=== PATIENT | female | born 1925 | race Caucasian/White ===

== ENCOUNTER 2016-11-09 12:00 | Inpatient (IN) | payer MEDICARE, OTHER ==
[~2016-11-09] VITALS: Ht 162.6 cm; Wt 53.9 kg
--- NOTE | ~2016-11-09 | CON ---
PATIENT'S NAME: CRISTOPHER BUI [facility] AGE: 89 Y [address] ROOM: [place] [address] LOCATION: GPCU ADMIT DATE: 11/09/2016 Consultation DISCHARGE DATE: FAMILY PHYSICIAN: PHYSICIAN, UNKNOWN ATTENDING PHYSICIAN: LITTLE DOMINGUEZ REFERRING PHYSICIAN: Alexander Yadav MD Consult for hospitalist Dr. Vgiil, hospitalist. This pleasant 89-year-old lady is referred for rehab/RN STARS evaluation, admitted on 11/09/2016 with left thigh pain. She is now status post on 11/09/2016: 1. Closed reduction, percutaneous pinning of the left hip. 2. Evacuation of left thigh hematoma. 3. Use of intraoperative fluoroscopy for about 1 hour, details on record. She has history of multiple falls, and she was found to be markedly anemic also, and during this investigation, was given 1 unit of packed cells. Her INR was on admission reportedly 3.7, and she was given vitamin K to reverse her Coumadin action. She is reportedly at the present time having difficulty also with swallowing, close investigated still. No headache. Denies any dizziness, can move all 4; however, her talk is clear, but she is markedly pale and anemic. PAST MEDICAL HISTORY: Significant as follows: 1. Atrial fibrillation, on long-term anticoagulation, Coumadin. 2. Sick sinus syndrome, status post pacemaker placement. 3. Coronary artery disease. 4. Hypertension. 5. Total abdominal hysterectomy. PHYSICAL EXAMINATION: GENERAL: She is now alert, able to respond well and appropriate. VITAL SIGNS: Blood pressure 154/68, temperature 99.9, pulse 80, respirations 20. She is 5 feet 4 inches tall and weighs 54.5 kg. EXTREMITIES: Moves all four as I mentioned, with a muscle strength of 3+/5. She is at the present time with IV line. She is on the following medications: 1. Albuterol. 2. Labetalol. PATIENT'S NAME: CRISTOPHER BUI [facility] AGE: 89 Y [address] ROOM: [place] [address] LOCATION: GPCU ADMIT DATE: 11/09/2016 Consultation DISCHARGE DATE: FAMILY PHYSICIAN: PHYSICIAN, UNKNOWN ATTENDING PHYSICIAN: LITTLE DOMINGUEZ 3. [place]. 4. Florastor. 5. Normal saline. 6. Rocephin. 7. Compazine. 8. Tylenol. 9. Zofran. 10. Os-Alfredo D. 11. Valium. 12. Aldactone. 13. Cozaar. 14. Flonase. 15. Florinef. 16. Pacerone. 17. Protonix. 18. Zoloft. 19. Requip. 20. Slow-Mag. 21. Coumadin. 22. NaCl. 23. Lomotil. 24. Fleet. 25. Dulcolax. 26. MOM. 27. Benadryl. 28. Ambien. 29. Soma. 30. Dextrose 5%. ASSESSMENT AND PLAN: At the present time, she is admitted here for bedside therapy, PT, OT, Speech which have been already initiated which I will continue. I will watch her and follow alongside with her. When she is stable, we will re-evaluate for possible rehab admission. At this present time, we have a full unit. Thank you for this referral. All the above was explained to her and her daughter. They verbalized understanding and agreement. ALEXANDER YADAV MD WMS/modl PATIENT'S NAME: CRISTOPHER BUI [facility] AGE: 89 Y [address] ROOM: [place] [address] [facility] ADMIT DATE: 11/09/2016 Consultation DISCHARGE DATE: FAMILY PHYSICIAN: PHYSICIAN, UNKNOWN ATTENDING PHYSICIAN: LITTLE DOMINGUEZ /[id number] d: 11/16/161946 t: 11/17/16913, CONSULTATION REPORT
--- NOTE | ~2016-11-09 | HP ---
PATIENT'S NAME: CRISTOPHER BUI [facility] AGE: 89 Y [address] ROOM: [place] [address] LOCATION: [facility] ADMIT DATE: 11/09/2016 History & Physical DISCHARGE DATE: FAMILY PHYSICIAN: PHYSICIAN, UNKNOWN ATTENDING PHYSICIAN: LITTLE DOMINGUEZ DATE OF SERVICE: CHIEF COMPLAINT: Left thigh pain. HISTORY OF PRESENT ILLNESS: An 89-year-old lady with a past medical history of atrial fibrillation, on Coumadin, resident of assisted living facility, also has a history of multiple recurrent falls, who was admitted at the [facility] yesterday with increasing left thigh pain, which started on Saturday. The patient can not recall when did she fall. On admission to the [place] facility, she was found to be anemic at that point, and she was given 1 unit of PRBC. Her INR was found to be elevated at 3.7, and she was given vitamin K, and yesterday, her INR was 1.7. A CAT scan was undertaken, which did not reveal any acute bony fracture but did show hematoma in the left iliopsoas muscle. On my encounter, she is only complaining of left thigh pain, which is exacerbated by movement. She denied any headache, any trouble with the eyes, any trouble swallowing, any chest pain, any palpitation, any abdominal pain, any constipation, diarrhea, or any burning on urination. REVIEW OF SYSTEMS: All other systems were reviewed and were negative except what is mentioned in the HPI. PAST MEDICAL HISTORY: Paroxysmal atrial fibrillation, on long-term anticoagulation with Coumadin as well as Pacerone; sick sinus syndrome, status post pacemaker; coronary artery disease and negative angiography in 2014; hypertension, total abdominal hysterectomy. SOCIAL HISTORY: Never a smoker. No alcohol or drug abuse. FAMILY HISTORY: Father of prostate cancer. Mom and dad both had high blood pressure. ALLERGIES: NO KNOWN DRUG ALLERGIES. PATIENT'S NAME: CRISTOPHER BUI [facility] AGE: 89 Y [address] ROOM: [address] [address] LOCATION: [facility] ADMIT DATE: 11/09/2016 History & Physical DISCHARGE DATE: FAMILY PHYSICIAN: PHYSICIAN, UNKNOWN ATTENDING PHYSICIAN: LITTLE DOMINGUEZ PHYSICAL EXAMINATION: VITAL SIGNS: 174/90, 103, 16, afebrile. GENERAL: In no acute distress. Alert and oriented x3. HEENT: HEAD: Atraumatic, normocephalic. Eyes: Nonicteric. No pallor. Oropharynx: Moist mucous membranes. CARDIOVASCULAR: S1, S2. Systolic ejection murmur at the aortic region. LUNGS: Clear to auscultation bilaterally. ABDOMEN: Soft, nontender, nondistended. Bowel sounds present. EXTREMITIES: No clubbing, cyanosis, or edema. MUSCULOSKELETAL: Exquisite tenderness noted in the left thigh posteriorly and tenderness noted. Pain on passive as well as active movement. Peripheral pulses +2. NEUROLOGIC: Cranial nerves 2 through 12 intact. No motor or sensory deficits. PSYCH: Normal affect, mood, and speech. LABORATORY DATA: Lab work from outside facility showed hemoglobin of 9.9 today. Potassium of 3.3, sodium 144, and creatinine 1.0. CAT scan report as mentioned in the HPI. ASSESSMENT AND PLAN: 1. Acute blood loss anemia. 2. Acute cystitis. 3. Left thigh hematoma. 4. Paroxysmal atrial fibrillation. 5. Hypokalemia. 6. Hypomagnesemia. 7. Sick sinus syndrome, status post pacemaker. 8. Osteoporosis. 9. Severe protein-calorie malnutrition. 10. Essential hypertension. 11. Recurrent multiple falls. PLAN: We are going to start the patient on IV fluids and IV pain medications. Orthopedic consultation has been obtained. We are going to replace potassium as well as magnesium. We are going to repeat H and H as of now, and if drop in hemoglobin, we will give her more packed red blood cells transfusion. Her INR was 1.7 yesterday. From outside facility, doctor told that on admission to the hospital, she had a urinary tract infection, which was acute cystitis and is being treated with Rocephin 1 g q.24 hours, which we will continue her. SCDs for DVT prophylaxis at this point. Code status was discussed with the patient, and the patient wishes to be full code. The patient's RSRI score was zero. She is a low risk patient for this low-risk surgery. If hematoma needs to be drained, we would recommend proceeding with the surgery. PATIENT'S NAME: CRISTOPHER BUI [facility] AGE: 89 Y [address] ROOM: [address], [facility] [place] [address] LOCATION: [facility] ADMIT DATE: 11/09/2016 History & Physical DISCHARGE DATE: FAMILY PHYSICIAN: PHYSICIAN, JENA ATTENDING PHYSICIAN: LITTLE DOMINGUEZ MD ROBIN PALACIOS/modl /[id number] D: [id number] T: [id number] HISTORY & PHYSICAL
--- NOTE | ~2016-11-09 | PN ---
PATIENT'S NAME: CRISTOPHER BUI [facility] AGE: 89 Y [address] ROOM: [id number] [place], [place] [address] LOCATION: GPCU ADMIT DATE: 11/09/2016 Progress Notes DISCHARGE DATE: FAMILY PHYSICIAN: PHYSICIAN, UNKNOWN ATTENDING PHYSICIAN: LITTLE DOMINGUEZ DATE OF SERVICE: 11/18/2016 PRINCIPAL DIAGNOSES: 1. Left femoral fracture, status post open reduction and internal fixation. 2. Left thigh hematoma, status post evacuation. 3. Aspiration pneumonia, received 5 days course of ceftriaxone. 4. Paroxysmal atrial fibrillation, on long-term anticoagulation with Coumadin, status post pacemaker. 5. Coronary artery disease. 6. Hypertension. 7. Dementia. 8. Severe protein-calorie malnutrition. 9. Acute cystitis, which was present on admission. HOSPITAL COURSE: This is an 89-year-old lady with a past medical history of atrial fibrillation, on Coumadin, who is a resident of an assisted living facility recently had recurrent falls and was admitted at the [facility] with increasing left thigh pain. An x-ray of the left hip was done, which did not reveal any fracture. She was transferred here for the presence of the left thigh hematoma. On arrival here, she was found to have acute blood loss anemia with the hemoglobin about 9.9. Orthopedic consultation was obtained, and the patient was taken to the OR. Prior to taking to the OR, a CAT scan of the femur was also done, which orthopedic surgeon felt that had a fracture and is occult in nature. In the OR, she underwent open reduction and internal fixation as well as evacuation of the left thigh hematoma. She tolerated the procedure well. She developed multiple complications in the hospital. She had difficulty swallowing, and she was high aspiration risk. She underwent modified barium swallow, and she was aspirating on all consistencies of food. She was put on tube feeds through a nasogastric tube. Speech therapy continues to work with her. During the course of the hospitalization. She continues to lose blood after the surgery without any obvious finding. She required 1 unit of packed red blood cell transfusion. She, after the surgery likely had aspiration on food and developed high white count as well as fever. She was restarted back on ceftriaxone, and chest x-ray did show bibasilar opacities. Her procalcitonin on day 5 of the Rocephin was 0.11, which was markedly lower than the previous procalcitonin. Sputum culture was finally obtained. We did show gram-positive cocci in chains. Further cultures and susceptibilities are pending. She has been afebrile for more than 48 hours PATIENT'S NAME: CRISTOPHER BUI [facility] AGE: 89 Y [address] ROOM: [place] [address] LOCATION: GPCU ADMIT DATE: 11/09/2016 Progress Notes DISCHARGE DATE: FAMILY PHYSICIAN: PHYSICIAN, UNKNOWN ATTENDING PHYSICIAN: LITTLE DOMINGUEZ. The plan for her is to undergo modified barium swallow again on Saturday on 11/19/2016. If she passes that, we can advance diet as tolerated and discontinue the tube feeds. She will need a swing bed/chcf facility for placement given her current comorbidities and current condition after left femoral hip fracture and repair. Her Coumadin has been restarted, and she has been therapeutic for the past 48 to 72 hours. Of note, she also had urinary tract infection on admission to the hospital. MD ROBIN PALACIOS/jackeline /[id number] d: 11/18/16 1632 t: 12/09/16 1507, PROGRESS NOTES
--- NOTE | ~2016-11-09 | OR ---
PATIENT'S NAME: CRISTOPHER BUI [facility] AGE: 89 Y [address] ROOM: [place] [address] LOCATION: GPCU ADMIT DATE: 11/09/2016 OR/Procedure Report DISCHARGE DATE: FAMILY PHYSICIAN: PHYSICIAN, UNKNOWN ATTENDING PHYSICIAN: LITTLE DOMINGUEZ SURGEON: Rudy Bella MD CALL CENTER ASSOCIATE: None. DATE OF PROCEDURE: 11/09/2016 PREOPERATIVE DIAGNOSES: 1. Left nondisplaced femoral neck fracture. 2. Symptomatic left thigh hematoma. POSTOPERATIVE DIAGNOSES: 1. Left nondisplaced femoral neck fracture. 2. Symptomatic left thigh hematoma. PROCEDURE: 1. Closed reduction and percutaneous pinning of left hip. 2. Evacuation of left thigh hematoma. 3. Use of intraoperative fluoroscopy, less than 1 hour. ANESTHESIA: General endotracheal anesthesia. FLUIDS: See Anesthesia report. ESTIMATED BLOOD LOSS: 100 mL. TOURNIQUET: None. SPECIMEN: None. COMPLICATIONS: None. DISPOSITION: Stable in PACU. COUNTS: All counts were correct. IMPLANTS: Synthes 7.3 mm partially threaded and cannulated stainless steel screws. INDICATIONS: Mrs. Bui is an 89-year-old female who underwent the noted procedures above. The risks, benefits, and alternatives pursuing surgical intervention were discussed with the patient, her daughter, her power-of- real estate attorney, in detail. Anesthesia was consulted for their perioperative PATIENT'S NAME: CRISTOPHER BUI [facility] AGE: 89 Y [address] ROOM: [place] [address] LOCATION: GPCU ADMIT DATE: 11/09/2016 OR/Procedure Report DISCHARGE DATE: FAMILY PHYSICIAN: PHYSICIAN, UNKNOWN ATTENDING PHYSICIAN: LITTLE DOMINGUEZ A evaluation of the patient. I marked the left lower extremity indicating correct surgical site. OPERATIVE REPORT IN DETAIL: The patient was taken from the holding area to the operating room. A time-out was performed. General endotracheal anesthesia was administered. Ancef antibiotic was administered for perioperative prophylaxis. I placed the patient on a [place] table and extremities prepped and draped in a sterile fashion. I turned my attention to the left hip. Using intraoperative fluoroscopy, I performed a closed reduction maneuver. I subsequently made an incision over the lateral aspect of the thigh through skin and subcutaneous tissue down through fascia muscle down to bone. I placed my 1st pin in a center-center inferior position and having confirmed it fluoroscopically. I then placed an anterior-superior and posterior-superior pin relative to the inferior center- center pin to create an inverted triangle pattern. I used a Reshma gun to assist with this positioning. Once the pins were placed, the pins were measured and then subsequently drilled in sequence and 7.3 mm partially threaded and cannulated screws were placed. The reduction was well-maintained and there was good compression across all 3 screws. The surgical incision was then carried more distally identified anterior thigh hematoma. I subsequently used a [place] elevator to evacuate the hematoma in the anterior aspect of the thigh. Most of the blood was coagulated. The wound was then copiously irrigated with a normal sterile saline solution via bulb syringe. The wound was then closed in layers beginning with 0 Vicryl followed by 2-0 Vicryl and neville for the skin. A Mepilex dressing was placed over the left hip. The nursing team then placed a Baker catheter. The patient was then transferred from the operating table onto a hospital bed and extubated and brought to the recovery room in stable condition. There were no intraoperative complications noted. Final fluoroscopic images were taken showing a successful left hip pinning with no evidence of complication. IMPRESSION: The patient is status post noted procedures above. PLAN: The patient will be toe-touch weightbearing on the left lower extremity. Physical Therapy and Occupational Therapy will be consulted for early ambulation and prevention of deconditioning. The hospitalist will continue to manage the patient's concomitant medical comorbidities. Postoperative antibiotics will be per routine. DVT prophylaxis will be in the form of Lovenox likely bridged to Coumadin. I will continue to monitor the PATIENT'S NAME: CRISTOPHER BUI [facility] AGE: 89 Y [address] ROOM: [address] [address] [facility] ADMIT DATE: 11/09/2016 OR/Procedure Report DISCHARGE DATE: FAMILY PHYSICIAN: PHYSICIAN, UNKNOWN ATTENDING PHYSICIAN: LITTLE DOMINGUEZ patient closely postoperatively. MD SHARAD QUIROZ/modl /[id number] d: 11/10/16 0024 t: 11/12/16 1626, OPERATIVE SUMMARY
--- NOTE | ~2016-11-09 | DS ---
PATIENT'S NAME: CRISTOPHER BUI [facility] AGE: 89 Y [address] ROOM: [place] [address] [place] [facility] [place]: 11/09/2016 Discharge Summary DISCHARGE DATE: 12/03/2016 FAMILY PHYSICIAN: Physician, Unknown ATTENDING PHYSICIAN: Luis Alberto Pedro PRINCIPAL DIAGNOSES: 1. Left femoral fracture status post open reduction and internal fixation. 2. Left thigh hematoma, status post evacuation. 3. Acute blood loss anemia. 4. Severe dysphagia. 5. Paroxysmal atrial fibrillation. 6. Coronary artery disease. 7. Hypertension. 8. Severe protein calorie malnutrition. 9. Acute cystitis, present on admission. HOSPITAL COURSE: This is an 89-year-old lady presented from assisted living facility after she had a fall and was admitted for evaluation of left thigh pain and on evaluation and CAT scan. She was noted to have a left femoral fracture that was occult in nature per Ortho's read and was subsequently taken to the OR and had an open reduction and fixation of the fracture site as well as evacuation of large hematoma around the site was done. The patient did well from that standpoint during her hospitalization. The patient was also known to have history of dysphagia and complications with aspiration which she did have during the hospitalization and her hospital stay was lengthy one mainly due to her ongoing dysphagia. The patient had been kept n.p.o. and received tube feedings for several days while speech therapy aggressively worked with her during hospitalization and fortunately, the patient was able to improve her swallowing and by discharge date, the patient was able to tolerate oral intake with diet that was consistent with a modified diet per speech therapist's recommendation. The patient on day of discharge is in good spirits tolerating p.o. intake very well. The patient is being [facility] for [facility]habbing and overall has done very well. The patient will follow up with the primary care physician within one week. PHYSICAL EXAMINATION: GENERAL: The patient is awake, alert, and oriented X3. No acute distress. HEART: S1 and S2; regular rate and rhythm. ABDOMEN: Soft, nontender, and nondistended. Positive bowel sounds. CHEST: Clear to auscultation bilaterally. EXTREMITIES: Without edema. MEDICATIONS: Per OCT. PATIENT'S NAME: CRISTOPHER BUI [facility] AGE: 89 Y [address] ROOM: [address] [address] [place] [facility] [place]: 11/09/2016 Discharge Summary DISCHARGE DATE: 12/03/2016 FAMILY PHYSICIAN: , Unknown ATTENDING PHYSICIAN: Luis Alberto Pedro Greater than 30 minutes were spent in discharge planning and facilitating. MD FABRICIO DANIELS/modl /[id number] d: 12/18/16 1151 t: 01/14/17 1510, DISCHARGE SUMMARY
--- NOTE | ~2016-11-09 | CON ---
PATIENT'S NAME: RCISTOPHER HARDY [facility] AGE: 89 Y [address] ROOM: [address] [place] [id number] LOCATION: [facility] ADMIT DATE: 11/09/2016 Consultation DISCHARGE DATE: FAMILY PHYSICIAN: PHYSICIAN, UNKNOWN ATTENDING PHYSICIAN: LITTLE DOMINGUEZ DATE OF CONSULTATION: 11/09/2016 ORTHOPEDIC CONSULTATION CHIEF COMPLAINT/REASON FOR CONSULTATION: Left hip and groin pain. HISTORY OF PRESENT ILLNESS: Ms. Hardy is a pleasant 89-year-old female, who sustained multiple falls in the last two weeks, the most recent being Saturday. She has ecchymosis of her hip and pain in the hip and groin region. She is not able to bear weight. Brought to the emergency room where she was seen and evaluated. There appears to be no evidence of fracture of the left hip. A CT scan was subsequently performed that revealed still evidence of hematoma. The patient reports hip and groin pain with swelling and inability to bear weight. Currently, the patient denies any constitutional symptoms of fever, chills, or night sweats. She also denies any dizziness, chest pain, shortness of breath, blurred vision, nausea, vomiting, or diarrhea. REVIEW OF SYSTEMS: A 10-point review of systems was performed. The patient issue is musculoskeletal in nature and it pertains to the patient's left lower extremity. There is pain, swelling, and discomfort with manipulation of the left lower extremity. PAST MEDICAL HISTORY: 1. Appendicitis. 2. Osteoarthritis. 3. Restless legs syndrome. 4. Dementia. 5. Atrial fibrillation. PAST SURGICAL HISTORY: Includes an appendectomy. SOCIAL HISTORY: The patient denies any alcohol, tobacco, or illicit drug use. She appears to live in a facility. PATIENT'S NAME: CRISTOPHER HARDY [facility] AGE: 89 Y [address] ROOM: [address] [place] [id number] LOCATION: [facility] ADMIT DATE: 11/09/2016 Consultation DISCHARGE DATE: FAMILY PHYSICIAN: PHYSICIAN, UNKNOWN ATTENDING PHYSICIAN: LITTLE DOMINGUEZ MEDICATIONS: Currently being reconciled. FAMILY HISTORY: There is history of hypertension on maternal and paternal sides of the family. PHYSICAL EXAMINATION: VITAL SIGNS: Afebrile. Vital signs are, otherwise, currently stable. GENERAL: The patient in no acute distress. She is awake and alert. She appears confused at baseline. HEENT: Normocephalic and atraumatic. Extraocular movements are intact. PERRLA. Moist mucous membranes. Oropharyngeal airway is clear. She is wearing corrective lenses. NECK: Supple. Trachea is in the midline. CARDIOVASCULAR: Regular rate and rhythm. ABDOMEN: Nontender and nondistended. CHEST: Normal and symmetric respirations are observed bilaterally. There is a left-sided pacemaker in place. PELVIS: Stable. MUSCULOSKELETAL: Left lower extremity: Focal examination of the patient's left lower extremity reveals that she is grossly neurologically intact distally. Compartments of the thigh, leg, and foot are soft. There is scattered ecchymosis of the proximal thigh and tenderness to the mid thigh. There is a positive log roll test. There is active dorsiflexion, plantar flexion of the ankle with no pain. She has palpable dorsalis pedal and posterior tibial pulse with good capillary refill in the toes. Right lower extremity: Focal examination of the patient's right lower extremity reveals that she is grossly neurologically intact distally. Compartments of the thigh, leg, and foot are soft. There is palpable dorsalis pedal and posterior tibial pulse. There is good capillary refill in the toes. There is a negative log roll test on this side. There is no pain with passive or active range of motion of the ankle. IMAGING STUDIES: Plain radiographs of the left hip revealed evidence of a nondisplaced transcervical incomplete fracture of the left femoral neck. A CT scan of the left hip and thigh revealed evidence of a left thigh hematoma and again no evidence of definitive fracture of the femoral neck or alternatively a nondisplaced fracture of the femoral neck. Diffuse osteopenia is noted. IMPRESSION: 1. Left nondisplaced fracture of the femoral neck. 2. Symptomatic left thigh hematoma. PATIENT'S NAME: CRISTOPHER HARDY [facility] AGE: 89 Y [address] ROOM: [id number] [place], [place] [id number] LOCATION: [facility] ADMIT DATE: 11/09/2016 Consultation DISCHARGE DATE: FAMILY PHYSICIAN: PHYSICIAN, UNKNOWN ATTENDING PHYSICIAN: LITTLE DOMINGUEZ PLAN: I had a long discussion with the patient in the presence of her daughter today regarding the left hip. It appears though there is an occult hip fracture as well as a thigh hematoma. I am recommending closed reduction and percutaneous pinning of the left hip and evacuation of her thigh hematoma. Despite the fact that the x-ray and CT scan are somewhat ambiguous, her clinical symptoms are not. The patient currently has a pacemaker, and is not eligible for an MRI. The hospitalist has cleared her for surgery and she is NPO. We will plan to proceed with a close reduction and percutaneous pinning of the left hip along with evacuation of her thigh hematoma as soon as this afternoon. I have answered all the patient and the patient's daughter's questions today at the bedside. MD SHARAD QUIROZ/jackeline /[id number] d: 11/09/163 t: 11/10/16 1107, CONSULTATION REPORT
[~2016-11-09 12:00] MED LIST: ACETAMINOPHEN650 M2 PO; ASPIRIN EC81 MG PO; CALCIUM 500 +1 EACH PO; CENTRUM SILVER1 TAB PO; COUMADIN **IA2.5 MG PO; COZAAR25 MG PO; FISH OIL1000 MG PO; LIPITOR10 M1 PO; MIDODRINE HCL5 MG PO; NORCO 5-325 MG1 TAB; RYTHMOL225 M1 PO
--- NOTE | 2016-11-09 14:15 | NUR ---
Pt is 89 y/o female admit for left thigh hematoma for hospitalist. No allergies. Pt resides at an assisted living in [place]. She has had a few falls, unclear as to when last fall was, but she's been getting weaker and weaker. Pt has hx dizziness,falls,sinus prob,afib,htn,edema in ankles,pacemaker, spinal stenosis,IBS/diarrhea,urgency/frequency-el at [facility],anxiety,memory problems.
[2016-11-09] MEDS ORDERED: CORDARONE,PACE200 MG PO (15:25)
[2016-11-09] MEDS ORDERED: FLORINEF0.1 MG PO (15:26)
[2016-11-09] MEDS ORDERED: PRILOSEC20 MG PO (15:27)
[2016-11-09] MEDS ORDERED: ZOLOFT50 MG PO (15:28)
[2016-11-09] MEDS ORDERED: REQUIP0.25 MG PO (15:28)
[2016-11-09] MEDS ORDERED: SLOW-MAG (64 MG1 TAB PO (15:28)
[2016-11-09] MEDS ORDERED: ALDACTONE25 MG PO (15:29)
[2016-11-09] MEDS ORDERED: ULTRAM50 MG PO ×2 (15:30→15:32)
[2016-11-09] MEDS ORDERED: TYLENOL ARTHRI650 MG PO ×2 (15:30)
[2016-11-09] MEDS ORDERED: LOMOTIL 2.5-0.1 EACH PO (15:31)
[2016-11-09] MEDS ORDERED: HYDROCODON-ACE1 EAC4 PO (15:33)
[2016-11-09] MEDS ORDERED: FLONASE 50 MCG/16 GM NOSE (15:35)
[2016-11-09 15:44] LABS: HEMATOCRIT 34.1 % (30.0-46.0)
[2016-11-09 15:52] LABS: INR - (THERAPEUTIC) 1.2 (0.9-1.1); PROTIME 12.2 SECONDS (9.6-11.1)
[2016-11-09 16:06] LABS: CPK 118 IU/L (21-215)
--- NOTE | 2016-11-09 16:40 | NUR ---
Significant Event: Patient went into surgery around 1630. Need to given Potassium IV when patient returns to floor. Follow up:
--- NOTE | 2016-11-10 04:15 | NUR ---
Significant Event: Dressing is clean, dry and intact. CSM WNL. Baker catheter. On 1 L of oxygen nasal cannula. On telemetry with no calls. Morphine and Percocet given at 2007. Patient has been resting since. Hypertensive at the beginning of the shift, but better after pain medication. Follow up:
[2016-11-10 06:06] LABS: HEMOGLOBIN 9.3 g/dL (10.0-15.0); MCH 29.7 pg (27.0-34.0); MCV 95.8 fl (83.0-98.0); MPV 9.6 fl (9.4-12.4); PLATELET COUNT 173 K/uL (150-450); RBC 3.13 M/uL (3.00-5.00); RDW-CV 15.4 % (11.9-14.6); WBC 5.9 K/uL (4.0-11.0)
[2016-11-10 06:12] LABS: INR - (THERAPEUTIC) 1.1 (0.9-1.1); PROTIME 12.1 SECONDS (9.6-11.1)
[2016-11-10 06:19] LABS: ANION GAP 9.5 (10.0-19.0); CALCIUM 7.9 mg/dL (8.5-10.5); POTASSIUM 4.5 mMol/L (3.7-5.1)
[2016-11-10 07:02] LABS: ABSOLUTE NEUTROPHIL CT (ANC) 5.3 K/uL (1.8-7.8); BANDED NEUTROPHIL # 0.1 K/uL (0.0-0.1); BANDED NEUTROPHILS % 1 %; LYMPHOCYTE # 0.2 K/uL (0.8-4.0); LYMPHOCYTE % 4 %; MONOCYTE # 0.4 K/uL (0.0-1.0); SEGMENTED NEUTROPHIL # 5.3 K/uL (1.8-7.8); SEGMENTED NEUTROPHIL % 89 %
--- NOTE | 2016-11-10 16:39 | NUR ---
Pt is alert and oriented this shift. She has hip spica chadwick wrap dressing left hip. dry and intact. Ice to hip. CSM WNL. Pt does ankle pumps well. Pt is Toe Touch weight bearing left. She is a pivot transfer with 2 assist and does fairly well mainting TTWB. Pt up chair today and back to bed. Pt gonzales removed at 1430. She has UTI and is on rocephin. She is to have a UA on 11/12. Pt takes po fluids fairly well. Says she occasionally coughs with thin liquids and has done a few times, but ate well and does better when sitting up in chair to eat. Pt had routine tylenol and ultram at 2;30 and she rates pain at 3 at this time. Uses IS at 1000. Daughter Manda called about pt transfer to another floor due to 3N closing. Pt weaned off O2 today and sats have remained over 90%. Pt on tele for history of atrial fib. No calls . Pt will go to swingbed when discharged. Has 2 saline locks both flush well.
--- NOTE | 2016-11-10 16:58 | NUR ---
Pt had 0.5 tab of norco for increase pain left leg at 1650.
--- NOTE | 2016-11-11 03:37 | NUR ---
Shift Summary: Patient can transfer with 2 assist/walker. Had difficult pain control at bedtime due to left leg spasms. Had 2 percocet, soma, and 2mg Morphine IV. Spasms relieved after the morphine and she has not needed anything for pain since then. Incontinent of urine x 1. Wears briefs. On tele for history of Afib. Has pacemaker. Waiting for placment.
[2016-11-11 04:55] LABS: HEMATOCRIT 29.2 % (30.0-46.0); HEMOGLOBIN 9.2 g/dL (10.0-15.0)
[2016-11-11 05:09] LABS: INR - (THERAPEUTIC) 1.5 (0.9-1.1); PROTIME 16.2 SECONDS (9.6-11.1)
[2016-11-11 05:15] LABS: ALBUMIN 2.4 gm/dL (3.5-5.0); ANION GAP 11.8 (10.0-19.0); CALCIUM 7.8 mg/dL (8.5-10.5); MAGNESIUM 2.3 mg/dL (1.3-2.6); POTASSIUM 4.8 mMol/L (3.7-5.1); TOTAL BILIRUBIN 0.4 mg/dL (0.0-1.5); TOTAL PROTEIN 4.9 g/dL (6.0-8.4)
--- NOTE | 2016-11-11 17:39 | NUR ---
On 2L 02. Slept most of day. Pt up to bedside commode, 2 assist. Treated spasms with soma at 1520, along with morphine for pain. Pt states that spasms get worse at night.
--- NOTE | 2016-11-11 19:21 | NUR ---
I HAVE READ AND AGREE WITH CHARTING BY NUBIA STUDENT NURSE.
[2016-11-12 04:08] LABS: ALBUMIN 2.3 gm/dL (3.5-5.0); ANION GAP 12.5 (10.0-19.0); CALCIUM 7.7 mg/dL (8.5-10.5); CREATININE 0.9 mg/dL (0.5-1.1); POTASSIUM 4.5 mMol/L (3.7-5.1)
[2016-11-12 04:11] LABS: PROTIME 22.7 SECONDS (9.6-11.1)
--- NOTE | 2016-11-12 06:48 | NUR ---
NEURO: A&O. CARDIO: Paced. VSS. Coumadin. Lovenox. Foot pumps. RESP: Mid to upper 90's on 2lrt. Occasional harsh cough. GI/: No nausea. BSC and also incontinent. Brief on. SKIN: Bruise to left hand. Pillo wrap to left hip which wraps around waist. IV: Bilateral IVs in FAs. SL. ACTIVITY: 2 assist to pivot to chair or commode. PAIN: Scheduled tylenol and Tramadol. Also has PRN Tramadol. PRN Burk[place], Valium. PLAN: Continue plan of care. Discharge when appropriate.
--- NOTE | 2016-11-12 12:30 | NUR ---
Introduced self and role of care management to patient and a daughter. Patient lives alone at [facility] [address] in [place]. She recently was at [facility] in [place] for 21 days. Daughter says patient doesn't really want to go back there. She says her sister is the POA, lives in [place] and works in [place], so they would like to look at [place] facilities. Gave her the names of the facilities. Told her will call and see who has beds. Called all 4 [place] facilities and all have beds except [facility]. Gave patient list of facilities with addressess and who has beds. She says her sister will be here around 1300 and she will give the list to her. Will check back to see there preference later. Will follow.
--- NOTE | 2016-11-12 13:06 | NUR ---
A-NUTRITION CONSULT RECEIVED D/T LOW PREALB VISITED W/PT AND PT'S DAUGHTER AND SON-IN-LAW. PT HAS TRIED BOOST BEFORE, BUT IT "IT DID NOT AGREE WITH HER STOMACH AND MADE HER GO TO THE BATHROOM." DISCUSSED SUPPLEMENT OPTIONS HERE AT THE HOSPITAL. PT WAS AGREEABLE TO TRYING ENSURE ENLIVE; GAVE HER A CHOCOLATE FLAVORED ENSURE TO TRY D/T HER ONLY EATING BITES OF LUNCH. WHILE VISITING W/PT, PT WAS EATING HER LUNCH. SEVERAL TIMES, PT TOOK A BITE OF HER [place] AND CHEESE AND STARTED COUGHING. WHEN ASKED IF SHE WAS HAVING A DIFFICULT TIME SWALLOWING, PT REPLIED YES. PT'S VOICE IS VERY SLURRED AND HARD TO UNDERSTAND AT TIMES. RD AND MD WERE NOTIFIED OF DIFF. SWALLOWING OBSERVATIONS AND REPORT FROM PT; SPEECH EVAL WAS ORDERED. PT AND FAMILY DENY RECENT WT LOSS; APPETITE WAS GOOD PRIOR TO HOSPITALIZATION/SURGERY. UBW FLUCTUATES BETWEEN 110-120 LBS. S/P EVACATION OF HEMOTOMA AND L)HIP PINNING ON 11/09 HT: 64 IN. WT: 52 KG IBW: 54 KG BMI: 19.6 LABS: NA 138, K+ 4.5, GLU 90, BUN 18, DONOR RELATIONS COORDINATOR 0.9 11/11- PREALB 9.0 (AFTER SURGERY AND EVAC. OF HEMATOMA) MEDS: OSCAL+D, VALIUM, PROTONIX, ULTRAM, ZOLOFT, REQUIP, NORCO, AMBIEN, PRN BOWEL MEDS, MORPHINE, TRANDATE INJ. DIET RX: REGULAR. PO INTAKE HAS BEEN 50-75%, UP UNTIL TODAY. PT HAD BITES OF LUNCH. EST NUTR NEEDS: 5737-4140 KCALS (25-35 KCALS/KG) 52-68 GM PROTEIN (1.0-1.3 GM/KG) D-AT NUTRITION RISK W/INCREASED NUTRIENT NEEDS R/T HEALING AEB RECENT SURGERY. I-1)START ENSURE ENLIVE TID W/MEALS 2)NO MILK TO DRINK, NO ICE CREAM, AND NO LETTUCE ADDED TO PT'S RECORD IN COMPUTRITION, PER PT REQUEST. M/E-GOAL: PO INTAKE >/=50% BY NEXT F/U 1)F/U WITH TOLERANCE OF ENSURE ENLIVE AND SPEECH EVAL TOMORROW 2)F/U PO INTAKE, SUPPLEMENT, AND POC IN 3-5 DAYS 3)ASSIST NEEDED
[2016-11-12 13:26] LABS: BILIRUBIN URINE NEGATIVE (NEGATIVE); BLOOD URINE NEGATIVE /UL (NEGATIVE); COLOR URINE YELLOW (YELLOW); GLUCOSE URINE NEGATIVE (NEGATIVE); KETONE URINE NEGATIVE (NEGATIVE); LEUKOCYTES URINE 25 /UL (NEGATIVE); NITRITE URINE NEGATIVE (NEGATIVE); PROTEIN URINE NEGATIVE (NEGATIVE); SPEC GRAVITY URINE 1.015 (1.003-1.035); TURBIDITY URINE CLEAR (CLEAR); UROBILINOGEN URINE NORMAL (NORMAL)
[2016-11-12 13:37] LABS: EPITHELIAL URINE 0-2 #/HPF (NEGATIVE); RBC URINE 0-2 #/HPF (NEGATIVE)
[2016-11-12 13:38] LABS: AMORPHOUS URINE 1+ (NEGATIVE); BACTERIA URINE NEGATIVE (NEGATIVE); MUCUS URINE 1+ (NEGATIVE); YEAST URINE FEW (NEGATIVE)
--- NOTE | 2016-11-12 16:30 | NUR ---
Around 1330 spoke with patient's daughters. VAN Holman says she talked to a friend and they recommended [facility]. Called and spoke with Chayo at [facility] and information faxed to her. Received call now from Chayo and they will come assess patient tomorrow between [phone]. She will check to see if can admit who tomorrow if they accept her after their assessment, but she doubts they can do that. Left VMM for daughter Manda with update from Mother Cierra. Will follow.
--- NOTE | 2016-11-12 19:24 | NUR ---
Significant Event: PATIENT ALERT AND ORIENTED X3. MEPILEX/YVONNE DRESSING C/D/I TO L) THIGH, NOTE SCANT AMOUNT OF OLD DRAINAGE TO MEPILEX DRESSING. CSM ASSESSMENTS WNL TO L) LOWER LEG. BILATERAL KNEE HIGH REGLA HOSE AND FOOT PUMPS ON. UP TO CHAIR AND COMMODE WITH 2 ASSIST, TTWB, USE OF GAIT BELT/WALKER, IS HEAVY ASSIST. C/O L) LEG PAIN, RATES 6-4 ON PAIN SCALE, RECEIVED NORCO 0.5 MG LAST AT 1845 AND ROUTINE TYLENOL 2 TABS AND ULTRAM 1 TAB AT 1453. HAD SPEECH CONSULT DUE TO PATIENT COUGHING/CHOKING DURING LUNCH. NEW ORDERS RECEIVED FOR MECHANICL SOFT DIET, CRUSH MED'S AND HONEY LIKE LIQUIDS. PATIENT TO HAVE MODIFIED BARIUM SWALLOW STUDY TOMORROW. LOVENOX STOPPED, INR 2.0, REMAINS ON COUMADIN. PATIENT HAD LARGE BM THIS AFTERNOON, CARES DONE. Follow up:
[2016-11-13 05:32] LABS: HEMATOCRIT 25.2 % (30.0-46.0); HEMOGLOBIN 8.1 g/dL (10.0-15.0); MCHC 32.1 gm/dL (32.0-36.5); MCV 93.3 fl (83.0-98.0); MPV 9.6 fl (9.4-12.4); PLATELET COUNT 166 K/uL (150-450); RDW-CV 16.5 % (11.9-14.6); WBC 6.7 K/uL (4.0-11.0)
[2016-11-13 05:38] LABS: INR - (THERAPEUTIC) 2.1 (0.9-1.1); PROTIME 23.7 SECONDS (9.6-11.1)
[2016-11-13 05:42] LABS: ANION GAP 11.4 (10.0-19.0); POTASSIUM 4.4 mMol/L (3.7-5.1)
[2016-11-13 05:43] LABS: CALCIUM 7.3 mg/dL (8.5-10.5)
[2016-11-13 05:57] LABS: ABSOLUTE NEUTROPHIL CT (ANC) 6.3 K/uL (1.8-7.8); BANDED NEUTROPHIL # 1.3 K/uL (0.0-0.1); BANDED NEUTROPHILS % 20 %; LYMPHOCYTE # 0.1 K/uL (0.8-4.0); LYMPHOCYTE % 2 %; MONOCYTE # 0.3 K/uL (0.0-1.0); SEGMENTED NEUTROPHIL % 74 %
--- NOTE | 2016-11-13 06:40 | NUR ---
Significant Event: Alert, oriented, patient had large emesis around 2330, likely aspirated, suction at bedside and harsh cough with dry heaves, lungs coarse throughout after episode, Zofran given, Labetolol given to decrease SBP from 200s back down to 120s this am, Tylenol suppository given for t-max of 102.2, temp has come down to 100.6 this am, patient more alert and back to baseline this am, increased to 3L O2, inconinent of b+b, liquidy stools, cdiff negative, dressing to L) leg intact with chadwick wrap, crush meds in pudding, mech soft diet, honey liquids Follow up: MBS today, monitor temp, pending blood cultures
--- NOTE | 2016-11-13 11:21 | NUR ---
A - NUTRITION F/U. LABS: GLU 116, BUN/BARBACK 21/1.0, ALB 2.3. FAILED MBS TODAY, ST RECOMMENDING ALTERNATE FEEDING ROUTE. RECEIVED ORDER FROM MD TO MAKE PT NPO. EST NEEDS: 6469-3530 KCALS, 52-68 GM PROTEIN. ATTEMPTED TO DISCUSS TF W/ PT BUT PT SLEEPY. D - AT RISK W/ DIFFICULTY SWALLOWING R/T WEAKNESS AEB RESULTS OF MBS. I - GOAL: PROVISION OF NEEDS VIA EN. M/E - REC TF W/ JEVITY 1.5 50 ML/HR = 1800 KCALS, 75 GM PROTEIN, 912 ML FREE H20. FLUSH W/ 200 ML H20 EVERY 6 HRS. RECS DISCUSSED W/ MD AND WRITTEN IN CHART. F/U IN 2-3 DAYS.
--- NOTE | 2016-11-13 15:00 | NUR ---
Call from Chayo at [facility] and they were here to assess patient. Before they make final decision, they will need to know the follow up on the MBS and if patient will have a dobbhoff or PEG tube. They can not do a dobbhoff at their facility. Told her I will update her once I have that information. She says if they accept patient, their D.O.N will contact Dr. Moy to see if he will follow patient while there. Will follow.
--- NOTE | 2016-11-13 19:02 | NUR ---
Significant Event: pt had modified barium swallow and failed. Pt npo except can have some meds crushed with pudding. PT amb pivot to commode and bed this afternoon. 02 2liters. IS 350. Hgb 8.1. Need straight cath for urine sample yet. Afebrile. Pt slept alot today, coughs more this darrell and started to cry states does that sometimes. Narcotics holding for sleepiness. Routine tylenol given and did well until this darrell. Pt daughter talked to nurse about poss.tube feeding in future, speech therapy. Mother Cierra dunlap today. Follow up:
--- NOTE | 2016-11-14 04:12 | NUR ---
Patient A/OX3, can be forgetful. Mumbles. 2L NC lungs slightly course to clear/diminished at times. Bowel sounds hypoactive. Lt leg Mepilex and chadwick wrap CDI, good pulses. Complains of lt leg pain, nausea, vomiting. Morphine 2mg IV x1 pain relief noted. Zofran and Compazine given. NPO held PO medications last night. Pills can be given crushed in pudding. 1 Lg incont void. Straight cath x1 for urine sample. Temp 102.3 high, tylenol supp given x1. Failed [place]um swallow test. Honey thick liquids. Mechanical soft diet was the recommendations. Needs placement.
[2016-11-14 05:45] LABS: HEMATOCRIT 25.3 % (30.0-46.0); MCH 29.4 pg (27.0-34.0); MCHC 31.6 gm/dL (32.0-36.5); MPV 9.7 fl (9.4-12.4); PLATELET COUNT 161 K/uL (150-450); RBC 2.72 M/uL (3.00-5.00); RDW-CV 16.9 % (11.9-14.6); WBC 9.5 K/uL (4.0-11.0)
[2016-11-14 05:50] LABS: INR - (THERAPEUTIC) 1.8 (0.9-1.1); PROTIME 20.4 SECONDS (9.6-11.1)
[2016-11-14 05:56] LABS: ANION GAP 9.5 (10.0-19.0); CALCIUM 7.8 mg/dL (8.5-10.5); POTASSIUM 4.5 mMol/L (3.7-5.1)
[2016-11-14 06:27] LABS: ABSOLUTE NEUTROPHIL CT (ANC) 8.6 K/uL (1.8-7.8); BANDED NEUTROPHIL # 1.8 K/uL (0.0-0.1); BANDED NEUTROPHILS % 19 %; LYMPHOCYTE # 0.5 K/uL (0.8-4.0); LYMPHOCYTE % 5 %; MONOCYTE # 0.5 K/uL (0.0-1.0); SEGMENTED NEUTROPHIL # 6.8 K/uL (1.8-7.8); SEGMENTED NEUTROPHIL % 71 %
[2016-11-14 11:21] LABS: BILIRUBIN URINE NEGATIVE (NEGATIVE); BLOOD URINE 10 /UL (NEGATIVE); COLOR URINE YELLOW (YELLOW); GLUCOSE URINE NEGATIVE (NEGATIVE); KETONE URINE NEGATIVE (NEGATIVE); LEUKOCYTES URINE 25 /UL (NEGATIVE); NITRITE URINE NEGATIVE (NEGATIVE); PROTEIN URINE 30 mg/dL (NEGATIVE); SPEC GRAVITY URINE 1.015 (1.003-1.035); TURBIDITY URINE CLEAR (CLEAR); UROBILINOGEN URINE NORMAL (NORMAL)
[2016-11-14 11:31] LABS: BACTERIA URINE NEGATIVE (NEGATIVE); EPITHELIAL URINE RARE #/HPF (NEGATIVE); MUCUS URINE 1+ (NEGATIVE); RBC URINE RARE #/HPF (NEGATIVE); WBC URINE RARE #/HPF (NEGATIVE)
--- NOTE | 2016-11-14 12:30 | NUR ---
Patient sleeping and no family present. Patient to have dobbhoff feeding tube inserted and tube feedings started today. Will follow.
--- NOTE | 2016-11-14 16:01 | NUR ---
Significant Event: AOx3. Hypertensive this afternoon. Lebetalol given IV. B/P was 194/80 then 174/[address]. [address] at 1300. New IV started in L) wrist. R) infiltrated. Midline started in R) upper. Can draw blood if need to. Make sure to keep it clamped when not in use. TTWB L) leg with 2 assist. 2L/O2. Straight cath x1 for UA. 400ml output. Incontinent x1. Follow up:
[2016-11-15 06:23] LABS: HEMATOCRIT 23.8 % (30.0-46.0); MCH 29.9 pg (27.0-34.0); MCHC 31.5 gm/dL (32.0-36.5); MCV 94.8 fl (83.0-98.0); MPV 9.7 fl (9.4-12.4); PLATELET COUNT 161 K/uL (150-450); RBC 2.51 M/uL (3.00-5.00); RDW-CV 17.1 % (11.9-14.6); WBC 5.5 K/uL (4.0-11.0)
[2016-11-15 06:27] LABS: HEMOGLOBIN 7.5 g/dL (10.0-15.0)
[2016-11-15 06:36] LABS: PROTIME 22.2 SECONDS (9.6-11.1)
[2016-11-15 06:44] LABS: ALBUMIN 2.3 gm/dL (3.5-5.0); ANION GAP 8.7 (10.0-19.0); CALCIUM 7.7 mg/dL (8.5-10.5); POTASSIUM 3.7 mMol/L (3.7-5.1)
[2016-11-15 06:47] LABS: TOTAL BILIRUBIN 0.6 mg/dL (0.0-1.5)
--- NOTE | 2016-11-15 07:55 | NUR ---
Significant Event: Patient is alert and oriented x 3. VSS on 2L of O2. HRs in the 60s-70s. SBPs in the 150s-160s. Afebrile. Harsh productive cough with white thick mucous. Sent down sputum culture, but too much saliva. Needs new sputum culture. Lung sounds slightly coarse/wheezy at times throughout. MD called at beginning of shift, IVF discontinued. TTWB to left lower extremity. CSM WNL to left lower extremity. Left hip dressing is intact, scant shadow drainage. Dophoff to left nare with Jevity 1.5 running at 50 ml/hr with q6 hour 200 ml water flushes. NPO. Received meds crushed through dobhoff. Incontinent BM x 3 this shift. Patient unable to void this shift, bladder scanned at >630 mls, MD called, order to straight cath x 1. 450 mls out. Right upper arm midline, saline locked. Left wrist IV, saline locked. Patient is cooperative with cares. Follow up:
[2016-11-15 08:46] LABS: ABSOLUTE NEUTROPHIL CT (ANC) 4.8 K/uL (1.8-7.8); BANDED NEUTROPHIL # 0.8 K/uL (0.0-0.1); BANDED NEUTROPHILS % 14 %; LYMPHOCYTE # 0.4 K/uL (0.8-4.0); LYMPHOCYTE % 7 %; MONOCYTE # 0.2 K/uL (0.0-1.0); SEGMENTED NEUTROPHIL % 73 %
--- NOTE | 2016-11-15 11:45 | NUR ---
Spoke with patient's daughter from [place]. She says she has been sick and unable to visit until today. She says her sister in [place] has jury duty and hasn't been able to come. She says sister from [place] is coming back today and that Manda is at work. Will follow.
--- NOTE | 2016-11-15 12:41 | NUR ---
A - NUT F/U. DOBHOFF PLACED. RECREATION ESTABLISHMENT MANAGER TRIALING NECTAR LIQUIDS. LABS: GLU 113, BUN/CR 27/1.0, ALB 2.3, HGB/HCT 7.5/23.8. MEDS: FLORASTOR, ROCEPHIN, ALDACTONE, PROTONIX, AMIODARONE, BOWEL/NAUSEA. DIET: JEVITY 1.5 @ 50 ML/HR W/ 200 ML WATER Q6 HRS. NO RESIDUALS. PROVIDES 1800 KCAL, 75 G PRO, 912 ML FREE WATER. EST NEEDS: 2392-4739 KCAL, 52-68 G PRO D - DIFFICULTY SWALLOWING R/T DYSPHAGIA AEB SWALLOW EVAL, NEED FOR ENTERAL NUTRITION. I - GOAL FOR ENTERAL NUTRITION TOLERANCE. M/E - WILL MONITOR TF F/U 2-4 DAYS.
--- NOTE | 2016-11-15 17:17 | NUR ---
Significant Event: Alert and oriented X 3. Nasal cannula at 2L. SBP 191, 159, and 179. Labetolol for SBP greater than 190. Temperatures this shift 99.2, 99.[address] if temperature is above 101.4. Mepilex dressing to right hip, clean dry and intact, scant old shadow drainage. Up with 2 assist pivot to chair. [place] given for pain at 0822 and Soma for spasms at 1225. Slept throughout the shift. When asked if she had any pain this afternoon she said she did not have any. Scheduled tylenol was given. 1 incontinent void this am. Bladder scan done at 1600, 538 ml. Dobb asha to left nare with jevity running at 50 ml, flush 200 ml every 6 hours. Can have sips of water. Pleasant and cooperative with cares. Follow up:
[2016-11-16 03:37] LABS: HEMATOCRIT 22.1 % (30.0-46.0); MCH 29.3 pg (27.0-34.0); MCHC 30.8 gm/dL (32.0-36.5); MCV 95.3 fl (83.0-98.0); MPV 9.7 fl (9.4-12.4); PLATELET COUNT 157 K/uL (150-450); RBC 2.32 M/uL (3.00-5.00); RDW-CV 17.2 % (11.9-14.6); WBC 5.6 K/uL (4.0-11.0)
[2016-11-16 03:38] LABS: HEMOGLOBIN 6.8 g/dL (10.0-15.0)
[2016-11-16 03:47] LABS: INR - (THERAPEUTIC) 2.46 (0.92-1.07); PROTIME 26.1 SECONDS (9.8-11.4)
[2016-11-16 03:54] LABS: ANION GAP 9.8 (10.0-19.0); POTASSIUM 3.8 mMol/L (3.7-5.1)
[2016-11-16 04:04] LABS: CALCIUM 7.4 mg/dL (8.5-10.5)
[2016-11-16 05:38] LABS: ABSOLUTE NEUTROPHIL CT (ANC) 4.9 K/uL (1.8-7.8); BANDED NEUTROPHIL # 0.9 K/uL (0.0-0.1); BANDED NEUTROPHILS % 16 %; LYMPHOCYTE # 0.2 K/uL (0.8-4.0); LYMPHOCYTE % 3 %; MONOCYTE # 0.5 K/uL (0.0-1.0); SEGMENTED NEUTROPHIL % 72 %
--- NOTE | 2016-11-16 05:40 | NUR ---
Significant Event: LOTS OF PAIN AT ABOUT 2130. TYLENOL GIVEN SCHEDULED WITH NOT MUCH RELIEF. DOBHOFF WAS NOTED TO BE PULLED OUT A LITTLE WAYS. AN ORDER WAS GIVEN TO ADVANCE ABOUT 8 INCHES. A KUB WAS DONE AFTER THIS AND ANOTHER ORDER FROM DR. WATT SAID IT WAS OK TO USE. NO RESIDUAL ALL NIGHT. SOMA WAS GIVEN SOON THE OK TO USE THE DOBHOFF WAS GIVEN. PT RESTED BETTER AFTER THIS. O2 INCREASED TO 5L PER NC. LUNGS REMAIN CLEAR/DIM. HACKY COUGH AT TIMES WITH MOD AMOUNTS OF YELLOW TO CLEAR SPUTUM. LARGE AMOUNTS OF INCONT URINE NOTED. Follow up:
--- NOTE | 2016-11-16 11:55 | NUR ---
reviewed student charting and on the floor from [phone] lachelle [id number]
--- NOTE | 2016-11-16 16:03 | NUR ---
Significant event: Alert, oriented x3. [place] given once with morning medication, made patient drowsy. More alert this afternoon, try to use tylenol for pain; C/O spasms this afternoon, soma given with relief. Lung sounds RLL fine crackles/wheezes this morning, now clearing. Hemoglobin was 6.8, given 1 unit of blood; recheck HH at 1600. Dobhoff secure to L) nare measuring at 59, KUB confirmed placement. Jevity at 50 ml/hr, with 200 ml flushes Q6H. To have a modified barrium swallow study on Saturday. Up H2A to commode and chair. L) hip incision covered with dressing, changed today, c/d/i. 1 BM today. Follow Up: Continue current POC
[2016-11-16 16:23] LABS: HEMATOCRIT 24.9 % (30.0-46.0)
--- NOTE | 2016-11-16 16:36 | NUR ---
Stopped by patient's room several times and no family present. Mother Cierra will consider patient, but can not accept with dobbhoff (which is true for all SNFs in the area). Will follow.
[2016-11-17 03:47] LABS: HEMATOCRIT 25.7 % (30.0-46.0); HEMOGLOBIN 8.1 g/dL (10.0-15.0); MCH 29.3 pg (27.0-34.0); MCHC 31.5 gm/dL (32.0-36.5); MCV 93.1 fl (83.0-98.0); MPV 9.3 fl (9.4-12.4); PLATELET COUNT 155 K/uL (150-450); RBC 2.76 M/uL (3.00-5.00); RDW-CV 17.1 % (11.9-14.6); WBC 4.5 K/uL (4.0-11.0)
[2016-11-17 04:11] LABS: INR - (THERAPEUTIC) 2.92 (0.92-1.07)
[2016-11-17 04:15] LABS: ANION GAP 9.8 (10.0-19.0); BLOOD UREA NITROGEN 29 mg/dL (6-24); CALCIUM 7.5 mg/dL (8.5-10.5); CHLORIDE 105 mMol/L (96-110); CO2 32 mMol/L (22-32); CREATININE 0.8 mg/dL (0.5-1.1); ESTIMATED GFR (MDRD EQUATION) > 60; POTASSIUM 3.8 mMol/L (3.7-5.1); SODIUM 143 mMol/L (135-145)
[2016-11-17 05:23] LABS: ABSOLUTE NEUTROPHIL CT (ANC) 3.7 K/uL (1.8-7.8); BANDED NEUTROPHIL # 0.9 K/uL (0.0-0.1); BANDED NEUTROPHILS % 20 %; LYMPHOCYTE # 0.6 K/uL (0.8-4.0); LYMPHOCYTE % 14 %; MONOCYTE # 0.2 K/uL (0.0-1.0); SEGMENTED NEUTROPHIL # 2.8 K/uL (1.8-7.8); SEGMENTED NEUTROPHIL % 62 %
--- NOTE | 2016-11-17 07:24 | NUR ---
Significant Event: Patient A/O x 3. Pain to back this shift, tylenol given. Congested cough, productive. Using vapor rub PRN. Lungs slightly coarse on 4 L. B.S. active, no bm this shift. Dobhoff to left nare, running jevity at 50 ml/hr with 200 ml flushes q6 hrs, 0 residual this shift. Can have sips and ice chips. heavy 2 assist, full lift. Incontinent to bladder. Dressing to left hip intact. Turn q 2. Follow up:[facility] Saturday. Oral cares.
--- NOTE | 2016-11-17 16:19 | NUR ---
Significant Event: Patient is alert and oriented x3. Drowsy at times- does not sleep well d/t cough. PERRLA. Spasms to legs- Soma given. Tylenol given for pain. Lung sounds are coarse in the upper lobes and diminished in the bases. Breathing is labored. Tachypnea. Productive cough. 3L O2. Attempted to wean off, however sats dropped significantly. Dobhoff to left nare with Jevity at 50 with 200 ml flush q 6 hours. Dobhoff at 59. Left leg has incision covered by mepilex- shadow drainage. Bruised to bilateral arms and left hand. Redness to coccyx- open to air. Barrier cream applied. Incontinent of both bowel and bladder. Heavy 2 assist to commode. Modified barrium swallow planned for Saturday.PIV- SL. Patient is "Tired of coughing" Pleasant and cooperative with cares. Follow up:
--- NOTE | 2016-11-18 04:49 | NUR ---
Significant Event: Patient is alert and oriented. Repositioned side to side in bed. Tube feedings continue with no residules. Large loose bowel movement this shift. [place] given x1 and scheduled tylenol for back discomfort. Remains incontient of urine. IVP labatelol given x1 for pressurs 197/79. Pleasant and cooperative with cares. Baker replaced prer prolocol. Follow up: continue to monitor
[2016-11-18 05:00] LABS: EOSINOPHIL # 0.1 K/uL (0.0-0.5); EOSINOPHIL % 1.6 %; HEMATOCRIT 25.8 % (30.0-46.0); HEMOGLOBIN 8.3 g/dL (10.0-15.0); IMMATURE GRANULOCYTE # 0.1 K/uL (0.0-0.3); IMMATURE GRANULOCYTE % 1.6 %; LYMPHOCYTE # 0.6 K/uL (0.8-4.0); LYMPHOCYTE % 12.4 %; MCH 29.6 pg (27.0-34.0); MCHC 32.2 gm/dL (32.0-36.5); MCV 92.1 fl (83.0-98.0); MONOCYTE # 0.7 K/uL (0.0-1.0); MONOCYTE % 12.7 %; MPV 9.5 fl (9.4-12.4); NEUTROPHIL # (ANC) 3.7 K/uL (1.8-7.8); NEUTROPHIL % 71.7 %; NRBC % 0 /100WBC (0-0.00); PLATELET COUNT 176 K/uL (150-450); RDW-CV 16.8 % (11.9-14.6); WBC 5.1 K/uL (4.0-11.0)
[2016-11-18 05:14] LABS: INR - (THERAPEUTIC) 2.41 (0.92-1.07); PROTIME 25.5 SECONDS (9.8-11.4)
[2016-11-18 05:16] LABS: ANION GAP 9.1 (10.0-19.0); BLOOD UREA NITROGEN 27 mg/dL (6-24); CALCIUM 7.6 mg/dL (8.5-10.5); CHLORIDE 104 mMol/L (96-110); CO2 32 mMol/L (22-32); CREATININE 0.8 mg/dL (0.5-1.1); ESTIMATED GFR (MDRD EQUATION) > 60; POTASSIUM 4.1 mMol/L (3.7-5.1); SODIUM 141 mMol/L (135-145)
--- NOTE | 2016-11-18 06:46 | NUR ---
Significant Event: Patient is alert and oriented. Repositioned side to side in bed. Tube feedings continue with no residules. Large loose bowel movement this shift. [place] given x1 and scheduled tylenol for back discomfort. Remains incontient of urine. IVP labatelol given x1 for pressurs 197/79. Pleasant and cooperative with cares. Follow up: continue to monitor
--- NOTE | 2016-11-18 18:30 | NUR ---
SIGNIFICANT EVENT: PT REMAINS ON 2 LITERS N/C WITH SLIGHTLY COURSE LUNG SOUNDS. DOBHOFF PATIENT WITH JEVITY OF 50 AND 200ML FLUSHES Q6, REDNESS TO LEFT LOWER NASAL. STILL TTW BEARING AND HEAVY 2A. PATIENT REPORTS WHEN SHE HAS YOU USE THE RESTROOM NOW. RATING PAIN 4-5 IN BACK, TYLENOL Q6. PATIENT HAS PRODUCUTIVE COUGH THAT GETS WORSE UPON MOVEMENT, ORAL SUCTION AT BEDSIDE. PATIENT REMAINS AFEBRILE. PRESSURES ARE HIGH BETWEEN 170-190, BETA-DILIP DOSAGE WAS INCREASED AT 11:00.
--- NOTE | 2016-11-19 04:12 | NUR ---
Significant Event: Patient alert and oriented. Dobhoff to left nare. No residules with tube feed at 50 ml per hour. Patient complained of back pain at beginning of shift. Tylenol and soma given. Patient crying and very upset a while later stating she could not sleep and was so tiered. Ambien and cough medicine given. Patient rested well through night. Remains on 2L oxygen. Labetalol given x1 for pressures 224/90. Pressures now 150s. Continues to be incontient of urine. Pleasant and cooperative with cares. Follow up: continue to monitor
[2016-11-19 04:41] LABS: EOSINOPHIL # 0.1 K/uL (0.0-0.5); EOSINOPHIL % 1.6 %; HEMATOCRIT 28.8 % (30.0-46.0); HEMOGLOBIN 9.3 g/dL (10.0-15.0); IMMATURE GRANULOCYTE # 0.1 K/uL (0.0-0.3); IMMATURE GRANULOCYTE % 1.6 %; LYMPHOCYTE # 0.6 K/uL (0.8-4.0); LYMPHOCYTE % 9.6 %; MCH 29.8 pg (27.0-34.0); MCHC 32.3 gm/dL (32.0-36.5); MCV 92.3 fl (83.0-98.0); MONOCYTE # 0.7 K/uL (0.0-1.0); MONOCYTE % 10.7 %; MPV 9.4 fl (9.4-12.4); NEUTROPHIL # (ANC) 4.8 K/uL (1.8-7.8); NEUTROPHIL % 76.5 %; NRBC % 0 /100WBC (0-0.00); RBC 3.12 M/uL (3.00-5.00); RDW-CV 16.3 % (11.9-14.6); WBC 6.3 K/uL (4.0-11.0)
[2016-11-19 04:47] LABS: INR - (THERAPEUTIC) 2.29 (0.92-1.07); PROTIME 24.3 SECONDS (9.8-11.4)
[2016-11-19 04:49] LABS: PLATELET COUNT 213 K/uL (150-450)
[2016-11-19 04:58] LABS: ANION GAP 14.1 (10.0-19.0); BLOOD UREA NITROGEN 23 mg/dL (6-24); CALCIUM 8.1 mg/dL (8.5-10.5); CHLORIDE 103 mMol/L (96-110); CO2 28 mMol/L (22-32); CREATININE 0.8 mg/dL (0.5-1.1); ESTIMATED GFR (MDRD EQUATION) > 60; POTASSIUM 4.1 mMol/L (3.7-5.1); SODIUM 141 mMol/L (135-145)
--- NOTE | 2016-11-19 12:33 | NUR ---
A - NUT F/U. DOBHOFF. ASP PNA. MBS TODAY? LABS: GLU 128. MEDS: PREVACID, LACTINEX, FLORASTOR, ALDACTONE, BOWEL/NAUSEA. DIET: JEVITY 1.5 @ 50 ML/HR W/ 200 ML WATER WATER Q6 HRS. NO RESIDUALS. PROVIDES 1800 KCAL, 75 G PRO, 912 ML FREE WATER (+ FLUSH). EST NEEDS: 9945-6339 KCAL, 52-68 G PRO. D - DIFFICULTY SWALLOWING R/T DYSPHAGIA AEB NEED FOR ENTERAL NUTRITION. I - GOAL FOR CONTINUED ENTERAL NUTRITION TOLERANCE. IF LONG-TERM ENTERAL NUTRITION NEEDED REC PEG PLACEMENT. M/E - WILL MONITOR POC, TF F/U IN 3-4 DAYS.
--- NOTE | 2016-11-19 13:31 | NUR ---
Spoke with patient late morning. She says she took a few steps in the room with therapy. Patient still has dobbhoff for tube feedings. Received a call from Chayo at [facility] and updated her. She says they are taking several other admissions this week and due to staffing may not be able to accept her. She says to call when patient is closer to discharge and she will see where they are with patients and staffing. Will follow.
--- NOTE | 2016-11-19 16:20 | NUR ---
Significant Event: pt up to bathroom and chair with PT, 2 heavy asst. MBS done today. Tylenol for back pain. Mucinex given for cough. Pt daughters here today. 02 2liters. Pt cries at times. Follow up:
--- NOTE | 2016-11-20 04:39 | NUR ---
Significant Event: VSS, PT AFEBRILE. 02 TURNED DOWN TO 1L, SATS REMAIN IN THE LOWER 90'S. PT CONTINUES TO HAVE HARSH PRODUCTIVE. COUGH. INCONTINENT SEVERAL TIMES OF URINE AND 1BM. TUBE FEED IS AT 50ML/HR, 200 ML FLUSHES Q6HRS. PT HAS NO CO PAIN. DRESSING TO LEFT HIP REMAINS CDI. Follow up:
[2016-11-20 04:53] LABS: INR - (THERAPEUTIC) 2.15 (0.92-1.07); PROTIME 22.8 SECONDS (9.8-11.4)
--- NOTE | 2016-11-20 16:19 | NUR ---
Spoke with patient and Veronika graham from [facility] and her DIL. Patient more alert at this time. Patient still has dobbhoff at this time. Will follow.
--- NOTE | 2016-11-20 18:59 | NUR ---
Significant Event: A/O X3. AFEBRILE. HR PACED IN 70'S. TYLENOL FOR PAIN CONTROL OF BACK PAIN. DOBBHOOF FEEDINGS TO 40ML/HR. PT. C/O BURNING IN HER STOMACH. HAD 3 X-LARGE PUDDING MUSHY STOOLS. HELD JEVITY X 30 MIN. DOBBHOFF AT 60 CM INTO LT. NARE. UP IN CHAIR X 2 TODAY, CH[place]. FAIR. REPOSITIONED OFF BUTTOCKS WHEN IN BED. HAS COUGH WITH SM. PROD. NPO. SWABBED MOUTH SEVERAL TIMES TODAY. Follow up: CONT. PLAN OF CARES
--- NOTE | 2016-11-21 05:05 | NUR ---
Significant Event: A/O x3. Afebrile. Mumbled speech. Pain in back, gave oxicodone 5mg x1, tylenol x2. VSS on 1L. SBP 160s. LS slightly coarse. Productive, strong cough. Currently TF running @ 40ml/hr and 200ml flushes q 6 hours. Pt experienced 1 loose bowel movement and 3 incontinent voids. Turn q 2 hours. Follow up: Continue to [facility] per plan of care.
[2016-11-21 05:09] LABS: INR - (THERAPEUTIC) 1.94 (0.92-1.07); PROTIME 20.5 SECONDS (9.8-11.4)
--- NOTE | 2016-11-21 10:53 | NUR ---
CONSULT RECEIVED D/T LACTOSE INTOLERANCE AND C/O OF BURNING W/ TF. ALL TF FORMULAS AT [facility] ARE LACTOSE FREE. PT CURRENTLY RECEIVES JEVITY 1.5 @ 50 ML/HR VIA DOBHOFF. CURRENT TF REGIMEN REMAINS APPROPRIATE. IF PT CONTINUES TO C/O OF BURNING REC CHECKING DOBHOFF PLACEMENT OR FOR GI IRRITATION. WILL CONTINUE TO MONITOR AND ASSIST NEEDED.
--- NOTE | 2016-11-21 16:27 | NUR ---
Significant Event: dr fragoso pt transfer to other floor as pt stable. Report given to Gabby narayan on neuro. 02 1liter. IVs sites. BP problems. Activity. Bowels and voids. NPO crush meds. Pain meds. Left hip dressing. Dobhoff instructed. INR 1.94. coumadin needs given. PT OT. Pt has daughters, need notify Manda. All pt supplies sent over with her. Pt coughs, given mucinex and robitussin. Follow up:
--- NOTE | 2016-11-21 17:32 | NUR ---
ARRIVED [facility] PCU AT 1630 PER BED. HOB AT 30 DEGREES DOBHOFF IN LEFT NARE. TUBE FEEDING IS RUNNUNG, MEDS CRUSHED AND POACED IN DOBHOFF. PT NPO HAS FAILED 2 MBS ASPIRATION. MEPILEX TO LEFT HIP C/D/I. INCONT OF URINE AND STOOLS. HAS A HARSH COUGH WAS GIVEN COUGH SYRUP TIMES 2 PRIOR TO TRANSFER. COOPERATIVE WITH CARES. IS A HEAVEY 2 ASSIST OR LIFT WITH TRANSFERS AND IS TOE TOUCH WEIGHT BEARING.
[2016-11-22 04:51] LABS: INR - (THERAPEUTIC) 2.05 (0.92-1.07); PROTIME 21.7 SECONDS (9.8-11.4)
--- NOTE | 2016-11-22 05:21 | NUR ---
Significant Event: A/OX3. DENIES NUMBNESS AND TINGLING. MOVES ALL EXTREMITIES SPONTANEOUSLY AND TO COMMAND. HTN AT TIMES. LUNGS SLIGHTLY COARSE ON 1L OF 02. COARSE COUGH. OCCASIONALLY INCONTINENT OF URINE. COCCYX RED- [place] APPLIED. MIDLINE TO RIGHT UPPER ARM. PERIPIHERAL IV TO RIGHT HAND. BOTH SALINE LOCKED. NPO. DOBHOF TO LEFT NARE RUNNING JEVITY 1.5 AT 50ML/HR WITH Q6 200ML H2O FLUSHES. TOE TOUCH WT BEARING TO LEFT LEG. HEAVY TWO ASSIST - FULL LIFT FOR NURSING. TYLENOL AND OXCODONE GIVEN FOR PAIN. MEPILEX DRESSING TO LEFT HIP C/D/I. Q2 BALLESTEROS. Follow up:
--- NOTE | 2016-11-22 12:58 | NUR ---
A - NUT F/U. DOBHOFF CLOGGED - TO BE REPLACED. MBS x 2 REC NPO. NO NEW LABS. MEDS: ALDACTONE, PREVACID, LACTINEX, FLORASTOR, BOWEL/NAUSEA. DIET: JEVITY 1.5 @ 50 ML/HR W/ 200 ML WATER Q6 HRS VIA DOBHOFF. NO RESIDUALS. PROVIDES 1800 KCAL, 75 G PRO, 912 ML FREE WATER. NEEDS: 8537-8697 KCAL, 52-68 G PRO. D - DIFFICULTY SWALLOWING R/T DYSPHAGIA AEB MSB RESULTS, NEED FOR ENTERAL NUTRITION. I - GOAL FOR CONTINUED ENTERAL NUTRITION TOLERANCE. REC PEG PLACEMENT FOR LONG-TERM ENTERAL NUTRITION. M/E - WILL MONITOR POC, TF F/U IN 4-5 DAYS.
--- NOTE | 2016-11-22 17:23 | NUR ---
Significant Event:VSS, rates pain 10/19. Tylenol suppository given at 1352 with reported relief of L leg pain. Pt reports pain on R medial portion of foot, ice bag applied with relief. CSM to lower extremities adequate, pt tx with 2 assists/GB/walker, L TTWB with reminders. Mepilex dsg is CDI. Dobhoff clotted off, replaced in Radiology after 3 attempts, Continues wlith Jevity 1.5 at 50ml/hr, with 200ml water flushes. Last flush at 1600. Pt lungs clear/diminshed, harsh cough with small amounts to cream sputum. O2/NC when she naps/sleeps. Daughter updated, pt probably be here through weekend to continue to monitor her feeding/swallowing. Follow up:Monitor
--- NOTE | 2016-11-22 17:49 | NUR ---
Significant Event:VSS, Mepilex dsg is CDI, CSM ADEQUATE TO LOWER EXTREMITIES. PT TX WITH 2 ASSIST/GB/WALKER, TTWB ON L WITH REMINDERS. DOBHOFF TO L NARE REPLACED PER RADIOLOGY, FEEDINGS CONTINUE AT 50ML/HR WITH 200ML WATER FLUSHES, LAST ONE AT 1600. TYLENOL 650MG SUPPOSITORY AT 1354, RATES PAIN 3/10. C/O R MEDIAL FOOT PAIN, XRAY ORDER, DR. TIAN WILL F/U. PLAN FOR PT TO CONTINUE INPT THROUGH , MONITOR SWALLOWING/FEEDING STATUS ON SATURDAY. IV MIDLINE PER R ARM, IVSL R HAND. Follow up:MONITOR
--- NOTE | 2016-11-23 03:12 | NUR ---
Significant Event: Patient is drowsy. Easily arousable and oriented x 3. PERRL. Moves spontaneously and follows commands. Repositioned Q2H. By 2nd assessment dobhoff was no longer working. Orders from Dr. Villarreal to attempt to reinsert in the morning (had been running Jevity at 50 mL/hr with water flushes of 200 mL Q6H). VSS. Afebrile. HTN. Mepliex to left hip C/D/I. 2PA, gait belt, walker with TTWB to LLE. Okay to hold medications for now. Midline IV to right arm SL with no complications. IV to right hand SL with no complications. Compression stockings and SCDs in place. On 1L O2 via NC at home Follow up: monitor intake, reposition Q2H, re-insert dobhoff today
[2016-11-23 05:12] LABS: INR - (THERAPEUTIC) 1.86 (0.92-1.07); PROTIME 19.6 SECONDS (9.8-11.4)
--- NOTE | 2016-11-23 19:04 | NUR ---
Significant Event:Pt is slightly more sleepy today. Arouses easily, and participates in therapies and cares appropriately. VSS, rates pain 4-6/10, scheduled Tylenol given per Dobhoff. Dobhoff per R nare, Jevity 1.5 at 50ml reinitiated at 1115, 200ml water flush. Mepilex dsg to L hip is CDI, CSM to lower extremities is WNL. Pt tx with 2 assist/GB/walker, TTWB on L, with good technique. Follow up:monitor
--- NOTE | 2016-11-24 05:40 | NUR ---
Significant Event: Alert and oriented X3. Hypertensive with SBPs 159-170. Sats at 92-93% on 1L 02. Inspiratory/expiratory wheezing at times, clears with coughing. Productive cough at times. Encouraged IS use and flutter valve. Dobhoff replaced yesterday by radiology, to R) nare. Tube feedings running at 50cc/hr with 200 ml flush q 6 hr (flush last given at 0235). Incontinent of urine x1, wears brief. Had a large loose BM. Midline IV to R) upper arm, saline locked. IV to R) hand saline locked. Pt ambulates with 2 assist, TTWB. CSM WNL. Mepilex dressing to L) hip is CDI. Roxicode given at HS for pain. Tylenol given this am for discomfort. Repositioned frequently throughout night. Follow up:
[2016-11-24 05:48] LABS: INR - (THERAPEUTIC) 2.02 (0.92-1.07); PROTIME 21.4 SECONDS (9.8-11.4)
--- NOTE | 2016-11-24 17:45 | NUR ---
Pt alert, oriented. sleepy part of the shift but arouses easily. Has had restless legs this morning but much better this afternoon. Pain low back at times and pain right leg. Denied pain left hip. Pt has mepilex drsg to left hip. She is on 1L o2. NO stools this shift. 2 urinary incontinencies. UP to chair this morning and now in bed on Rt side. She is TTWB left. Has coughed up a lot of phlegm this shift. Tube feed continues at 50 ml/hr with q 6 hr water flushes. Meds thru tube as well. Pt was tearful later this afternoon about where she will go when leaves here. Daughter aware and coming to see her tomorrow. Had roxicodone at 0945 and routine tylenol
--- NOTE | 2016-11-25 04:45 | NUR ---
Significant Event: A&Ox3, flat affect. HTN, SBP 170s-140s. Pain and restlessness to left leg. Janki given X1 this shift. Repositioned Q2hrs and PRN. Dobhoff to right nare with no complications. Jevity at 50ml/hr with Q6hrs 200cc H2O flushes. INC X2 this shift of XXL voids. Patient to have modified barrium swallow study today. Follow up: Waiting for placement.
--- NOTE | 2016-11-25 16:12 | NUR ---
Significant Event: PT A&O x3. VSS, on 1L O2 per nasal cannula. Dobhoff to R)nare, TF running at 55ml/hr, no residuals. Minimal c/o pain, well controlled with scheduled tylenol. PT ambulates with 1-2 assist, gait belt and walker. Depends on for incontinence. Swallow study tomorrow. Dressing intact to hip. Follow up:
--- NOTE | 2016-11-26 03:49 | NUR ---
Pt A&Ox3, VSS on 1L O2 via NC. Dobhoff in place to right nare, with Jevity at goal rate of 50ml/hr with 200ml flush q6hrs, tolerating tube feeding well. NPO, meds crushed throughout dobhoff. CSM/neuros intact, dressing to left hip CDI. Pain well controlled with oxycontin IR, scheduled tyleonl. Pt repo q2hrs/PRN as tolerated. Incontinent of urine at times. Cooperative with cares.
[2016-11-26 04:52] LABS: INR - (THERAPEUTIC) 2.34 (0.92-1.07); PROTIME 24.8 SECONDS (9.8-11.4)
--- NOTE | 2016-11-26 12:56 | NUR ---
A - NUT F/U. DYSPHAGIA. PLAN FOR ANOTHER MBS. NO NEW LABS. MEDS: HYDRODIURIL, ALDACTONE, PREVACID, LACTINEX, ZOLOFT, BOWEL/NAUSEA. DIET: JEVITY 1.5 @ 50 ML/HR W/ 200 ML WATER Q6 HRS VIA DOBHOFF. MIN RESIDUALS. PROVIDES 1800 KCAL, 75 G PRO, 912 ML FREE WATER. EST NEEDS: 9921-9926 KCAL, 52-68 G PRO. D - DIFFICULTY SWALLOWING R/T NEUROMUSCULAR DYSFUNCTION AEB DYSPHAGIA, NEED FOR ENTERAL NUTRITION. I - GOAL FOR CONTINUED ENTERAL NUTRITION TOLERANCE. REC PEG PLACEMENT FOR LONG-TERM ENTERAL NUTRITION. M/E - WILL MONITOR POC, TF F/U IN 3-5 DAYS.
--- NOTE | 2016-11-26 13:30 | NUR ---
Spoke with patient, daughter from [place] and her MIG[place]. Patient still plans to go to [facility] when ready for discharge. Will follow.
--- NOTE | 2016-11-26 14:51 | NUR ---
Significant Event: AOx3. Hypertensive this morning, better after morning meds. 1L/O2. NPO. Has Dobhoff in R) nare running jevity at 50ml/hr with 200ml flushes Q6hrs. Midline to R) upper arm. 2 assist with walker to bedside commode. Dressing to L) hip is C/D/I. Follow up:
--- NOTE | 2016-11-27 05:39 | NUR ---
Significant Event: Patient A/O x 3. Perrla. Denies N/T. Pain to left leg throughout shift. Moves all extremities spontaneoulsy and to command. On room air for most of shift, switched to 1 L around 0400. Pacemaker. HTN at times. NPO. Dobhoff to right nare, running Jevity 1.5 at 50 ml/hr with 200 ml flushes q 6 hours. 0 residual. Active bowel sounds. Given suppository this shift. Transfers 2 assist. L) hip dressing C/D/I. Midline to Right upper arm, saline locked. Good blood return. Roxicodone given last at 0016, relief noted. Follow up: Transferred to Med Surg at 0530, cares turned over to IMELDA Hardy.
--- NOTE | 2016-11-27 10:30 | NUR ---
Update faxed to Chayo at [facility] this a.m. Care Management to follow.
--- NOTE | 2016-11-27 12:41 | NUR ---
Patient moved [facility] [place] [facility] so I have taken on the role of her healthcare analyst. Update from Beverley Sharma CM and she states that [facility] has accepted patient once the dobhoff is discontinued. Beverley faxed [facility] and update on patient today. At 1200 I received a call from Chayo at [facility] stating they are not accepting any admissions this week and possibly will not be accepting next week either. If patient is ready for discharge this week will need to make referrals again for her. Will talk with family to get their choice for placement and monitor whether or not the dobhoff is discontinued. Will continue to follow.
--- NOTE | 2016-11-27 17:21 | NUR ---
Significant event: Up to commode with 2 assist, gait belt, and walker. toe touch weight bearing left leg. Dressing to left leg dry and intact. Dobhoff in right nare. Plan for diet with assist with speech therapy starting tomorrow. Has been alert and oriented. Both daughters have been here today.
--- NOTE | 2016-11-28 05:35 | NUR ---
Significant Event: Patient alert and oriented X4. UP with 2 person assist, walker and gait belt. L) thigh mepilex clean/dry/intact. Reported some pain to this site. Lit given X1 at 0100. Slept well after that. Vitals stable and on room air. Reposition every 2 hours. INcont X2. Dobhoff in R) nare and has continuous tubefeedings at 50ml per hour and 200ml flush every 6 hours. Had swallow study yesterday. Speech to work iwth patient today. Crush meds and give in dobhoff. Lookin for NH placement. NPO. Follow up: Monitor dobhoff
[2016-11-28 06:10] LABS: INR - (THERAPEUTIC) 2.24 (0.92-1.07); PROTIME 23.7 SECONDS (9.8-11.4)
--- NOTE | 2016-11-28 15:33 | NUR ---
Phone call from Siobhan with [facility] at 0910 stating she would like to come and assess patient. I spoke to daughter from out of state and she will be around all day. Siobhan will be over this morning to assess. Phone call from Heather with [facility] stating she is planning on coming and assessing patient this afternoon. Morton back from Siobhan at 1305 and she states they will accept patient as a resdient once she is off the dobhoff. Heather called me at 1400 and said she was on her way to the hospital to assess patient. She states that when she checked patient's benefits she found out taht patient has used between 47-53 skilled days already and she wanted to know if I knew where those days were used. I informed her that they were likely used in [place] and she states that is what she thought. She also needs a copy of patient's insurance card, which I faxed to her. She will assess patient and then get back in touch with me. She states they will not be able to accept until early to mid next week regardless. I will wait to hear back from Heather and I will discuss with family that [facility] as agreed to accept. Will see what family decides. Will continue to follow.
--- NOTE | 2016-11-28 17:13 | NUR ---
Significant Event: PT AO. VSS ON RA, AFEBRILE. DOBHOFF TO R NARE. TUBE FEED ARE ON HOLD. PT IS PUREE DIET, NECTAR THICK LIQUIDS, 1:1 VERBAL CUES. HAS MIDLINE TO VANNA, SL TO R WRIST. TTWB TO LLE. UP WITH 2PA, GAITBELT AND WALKER. DRESSING TO L HIP, C/D/I. PRN ROXICODONE AT 1438. CM WORKING ON PLACEMENT. [facility] TO EVALUATE TODAY. PT/OT WORKING WITH. SMALL BM X2 THIS SHIFT. Follow up: REPO Q2, ENCOURAGE PO INTAKE
--- NOTE | 2016-11-29 04:32 | NUR ---
Significant Event: Patient alert and oriented X4. Up with 2 person assist. Toe touch weight bearing to L) leg. Using walker and gait belt. Up in chair when eating. Feet touching floor and at 90 degrees. Needs verbal cues and 1:1 feeder. Vitals stable and on room air. Dobhoff feedings discontinued but still in place. No order to crust meds and give orally, so continued to give in dobhoff. Reposition every 2 hours and apply aloe vesta to buttocks. INcont at times. SL to R) hand and midline to R) upper arm. Gave mahendra aroud 0145. Slept well after that. Pureed meals and nectar thickened liquids. Coughs often. Needs reminders to double swallow. Mepilex dressing to L) hip/thigh. Follow up: Monitor feeding
--- NOTE | 2016-11-29 09:50 | NUR ---
A - NUTRITION F/U. DIET: PUREE NECTAR THICK. INTAKE 0-50%. PT IS A 1:1 FEEDER. DOBHOFF REMAINS. D - AT RISK W/ INADEQUATE ORAL INTAKE R/T DIFFICULTY SWALLOWING AND DECREASED APPETITE AEB INTAKE RECORD. I - GOAL: 50% OR BETTER INTAKE BY DISMISSAL. M/E - 1) WILL ADD ENSURE PUDDING AT BF AND MAGIC CUPS AND L/D. 2) WILL MONITOR INTAKE; MAY NEED TO RESUMES FEEDINGS TO MEET NEEDS. 3) F/U IN 2-4 DAYS.
--- NOTE | 2016-11-29 14:00 | NUR ---
[phone] phone call from Doris in the office saying daughter Lizzy stopped in and would like to talk to me and she would be in the patient's room. I stopped in and spoke to Lizzy, her and patient. The family toured both [facility] and [facility] yesterday. They prefer [facility] and really do not want to go to [facility] even though [facility] has a bed for patient. I explained that [facility] does not have a bed at this time, but they anticipate they will have one next week, no guarantees though. The family said they are interested in [facility] only 15 miles from the other daughter. I placed a call to Shira at [place] [phone] and she staes they may have a bed available so I faxed the patient's information to her at [phone]. I let the family know that there is a possibility that [facility] will accept her. Will wait to hear back from Shira. Will continue to follow.
--- NOTE | 2016-11-29 17:54 | NUR ---
Patient is alert and oriented, VSS. Dobhoff was removed today. Pureed diet with nectar thickened liquids. Toe-touch weight bearing to the L) leg. Needs cues to eat, can eat by herself. Up in chair for all meals. Mepilex dressing to L) hip. IV to R) hand and midline to upper arm are saline locked. Plan is to discharge tomorrow to [facility] if they accept.
--- NOTE | 2016-11-30 05:12 | NUR ---
Significant Event: Patient alert and oriented X4. Forgetful at times. Hard of hearing. Up with 2 person assist to chair. Up in chair for meals. Feet on groud and at 90 degree angle, tuck chin. Pureed diet and nectar thick liquids. No dobhoff. Toe touch weight bearing to L) leg. Dressing to L) thigh clean/dry/intact. Vitals stable and on room air. Crush meds in applesause. Denies need for pain meds. INcont X2. Seems depressed. Needs encourage ment to eat and drink. POssibly going to [facility] today. Reposition every 2 hours. Aloe vesta to buttocks. Needs verbal cues when eating. Follow up: Monitor swallowing
[2016-11-30 09:49] LABS: CPK 63 IU/L (21-215)
--- NOTE | 2016-11-30 13:21 | NUR ---
Patient is alert and oriented, on room air. 2 assist with walker and gait belt. Toe touch weight bearing to L) leg. Bran removed from L) leg and steri strips applied. Patient had a FOOD SAFETY FIELD SPECIALIST called at 0825 for possible vagel or orthostatic BP. She was in the bathroom after her shower and needed to have a BM so she stood up with both CNAs and went unresponsive. After FOOD SAFETY FIELD SPECIALIST, orthostatic BPs were done and she almost went unresponsive again with the standing. 1L NS bolus was given. Will repeat orthostatic BPs. Possible discharge on saturday to [facility] [facility] (if they accept).
[2016-11-30 13:40] LABS: INR - (THERAPEUTIC) 2.32 (0.92-1.07); PROTIME 24.6 SECONDS (9.8-11.4)
--- NOTE | 2016-11-30 14:03 | NUR ---
0810 checked with charge nurse Ingrid to see if Shira from [facility] had been here to assess patient yet, she said no. At approximately 0830 I hear alert for Rapid Response to patient's room. I called the floor at 0900 and found out that patient went unresponsive in the bathroom likely due to a sudden drop in blood pressure. Due to the rapid response being called patient will likely not discharge today. She is lethargic at this time, but responds and is oriented. I placed a call to Shira at [facility] at 1045 to see if she was coming to assess patient and she responds that she is coming soon. I notified daughters Lizzy and Manda that Shira will be coming to assess and due to the situation this morning patient will not be discharging today. The plan is patient will be here until Saturday and will hopefully discharge to [facility] on Saturday, if they accept her as a resident. Will contact Shira later today to see if she was able to make decision on accepting patient. Will continue to follow while here.
--- NOTE | 2016-12-01 04:34 | NUR ---
Significant Event: Patient alert and oriented. VSS on room air. TTWB on left leg. 2 assist with transfers. Incontient of urine. Rested well throughout shift. Pleasant and cooperative with cares. Follow up: continue plan of care, transfer to [facility] on Saturday.
[2016-12-01 05:40] LABS: INR - (THERAPEUTIC) 2.55 (0.92-1.07)
--- NOTE | 2016-12-01 16:00 | NUR ---
patient doing well. ttwb to left leg. steristrips intact to incisions, left thigh. inct of urine x 1, bm x 1. pureed with nectar liquid tolerating well. midline iv to right upper arm saline lock. up to chair today. csm adequate.
--- NOTE | 2016-12-02 05:13 | NUR ---
Significant Event: Patient alert and oriented. UP with 1-2 assist. VSS on room air. Incontient of urine at times. Steri strips to left hip dry and intact. Rested well throughout shift. Pleasant and cooperative with cares. Follow up: continue plan of care, transfer to [facility] on saturday
[2016-12-02 05:24] LABS: INR - (THERAPEUTIC) 3.34 (0.92-1.07); PROTIME 35.5 SECONDS (9.8-11.4)
--- NOTE | 2016-12-02 16:58 | NUR ---
Significant Event: patient up with 1-2 assist, up in chair for meals, needs reminded about chin tuck, sleeping a lot-encouraged to try and stay awake so able to sleep at night Follow up:transfer to [facility] tomorrow
--- NOTE | 2016-12-03 05:13 | NUR ---
Significant Event: Patient is alert and oriented. VSS on room air. Soma given x1 at HS with relief noted. Transfers with 2 assist. TTWB to left leg. Plans to transfer to [facility] today. Pleasant and cooperative with cares. Follow up: continue to monitor
[2016-12-03 06:04] LABS: INR - (THERAPEUTIC) 3.86 (0.92-1.07); PROTIME 41.1 SECONDS (9.8-11.4)
--- NOTE | 2016-12-03 12:57 | NUR ---
899 phone call from Shira at [facility] asking if melissa was still okay to discharge today. I told Shira that I need to go to the floor and check chart. At 904 I placed a call to Dr. Pedro letting him know that we have a planned discharge at 1100 if patient is medically cleared. At 08 I called Xochitl Almanzar APRN and let her know the same. I heard back from Xochitl at 1005 stating patient is medically cleared and can plan for discharge between [id number]. I faxed discharge orders to Shira at [facility] ([phone]) at 1045. Spoke to family and informed them the plan is still to discharge between [id number] today. All questions answered.
== END 2016-12-03 11:45 | DRG 480 ==
LOC: G3N 12:00 → GPCU 13:04 → G3N 13:04 → GMSU 13:04 → GPCU 11-10 17:16 → GNTU 11-21 15:59 → GMSU 11-27 05:31
PROVIDERS: Hospitalist; Internal Medicine; ADMIT Internal Medicine
DX: S72.035A Nondisplaced midcervical fracture of left femur, initial encounter for closed fracture (principal); E43 Unspecified severe protein-calorie malnutrition; J69.0 Pneumonitis due to inhalation of food and vomit; I48.0 Paroxysmal atrial fibrillation; E83.42 Hypomagnesemia; I11.0 Hypertensive heart disease with heart failure; I50.9 Heart failure, unspecified; R13.11 Dysphagia, oral phase; F03.90 Unspecified dementia, unspecified severity, without behavioral disturbance, psychotic disturbance, mood disturbance, and anxiety; N30.00 Acute cystitis without hematuria; Z68.1 Body mass index [BMI] 19.9 or less, adult; D62 Acute posthemorrhagic anemia; W18.30XA Fall on same level, unspecified, initial encounter; Z91.81 History of falling; S70.12XA Contusion of left thigh, initial encounter; Z79.01 Long term (current) use of anticoagulants; I25.10 Atherosclerotic heart disease of native coronary artery without angina pectoris; G25.81 Restless legs syndrome; K21.9 Gastro-esophageal reflux disease without esophagitis; E87.6 Hypokalemia; F32.9 Major depressive disorder, single episode, unspecified; E55.9 Vitamin D deficiency, unspecified; Z95.0 Presence of cardiac pacemaker; Z79.82 Long term (current) use of aspirin; M19.071 Primary osteoarthritis, right ankle and foot; M81.0 Age-related osteoporosis without current pathological fracture; R79.1 Abnormal coagulation profile; I16.0 Hypertensive urgency; I95.1 Orthostatic hypotension
CPT/HCPCS: A9270; C1713; C1751; J0690; J0696; J0780; J1650; J2001; J2250; J2270; J2405; J3010; J3475; J3480; J7030; J7040; J7050; J7120; P9016

== ENCOUNTER → 2016-12-06 | Outpatient (CLI) | payer OTHER, MEDICARE ==
[~2016-12-06] MED LIST changes: +ALDACTONE25 MG PO; +CORDARONE,PACE200 MG PO; +FLONASE 50 MCG/16 GM NOSE; +FLORINEF0.1 MG PO; +HYDROCODON-ACE1 EAC4 PO; +LOMOTIL 2.5-0.1 EACH PO; +PRILOSEC20 MG PO; +REQUIP0.25 MG PO; +SLOW-MAG (64 MG1 TAB PO; +TYLENOL ARTHRI650 MG PO; +ULTRAM50 MG PO; +ZOLOFT50 MG PO
[2016-12-06 11:26] LABS: HEMATOCRIT 33.4 % (30.0-46.0); HEMOGLOBIN 10.6 g/dL (10.0-15.0); MCH 30.8 pg (27.0-34.0); MCHC 31.7 gm/dL (32.0-36.5); PLATELET COUNT 171 K/uL (150-450); RBC 3.44 M/uL (3.00-5.00); RDW-CV 17.7 % (11.9-14.6); WBC 3.6 K/uL (4.0-11.0)
[2016-12-06 11:28] LABS: MCV 97.1 fl (83.0-98.0)
[2016-12-06 11:30] LABS: CALCIUM 8.2 mg/dL (8.5-10.5); CREATININE 1.3 mg/dL (0.5-1.1)
[2016-12-06 11:33] LABS: ANION GAP 13.8 (10.0-19.0); POTASSIUM 3.8 mMol/L (3.7-5.1)
[2016-12-06 12:29] LABS: ABSOLUTE NEUTROPHIL CT (ANC) 2.7 K/uL (1.8-7.8); BANDED NEUTROPHIL # 0.1 K/uL (0.0-0.1); BANDED NEUTROPHILS % 4 %; LYMPHOCYTE # 0.5 K/uL (0.8-4.0); LYMPHOCYTE % 14 %; MONOCYTE # 0.2 K/uL (0.0-1.0); SEGMENTED NEUTROPHIL # 2.6 K/uL (1.8-7.8); SEGMENTED NEUTROPHIL % 72 %
== END | disposition disaster alternative care site (69) ==
PROVIDERS: Family Medicine
DX: D62 Acute posthemorrhagic anemia (principal)

== ENCOUNTER → 2017-02-28 | Outpatient (CLI) | payer MEDICARE, OTHER | END | disposition disaster alternative care site (69) | LOC: GRAD 13:26 | DX: R13.19 Other dysphagia (principal) | CPT/HCPCS: G8996; G8997; G8998 ==